=== PATIENT | female | born 1970 | race Caucasian/White ===

== ENCOUNTER 2021-11-15 08:33 | Outpatient (CLI) | payer OTHER | END 2021-11-15 08:34 | disposition home or self-care (01) | LOC: SCSMRI 08:33 | PROVIDERS: ATTEND Nurse Practitioner Family | DX: S83.522A Sprain of posterior cruciate ligament of left knee, initial encounter (principal); S83.242A Other tear of medial meniscus, current injury, left knee, initial encounter ==